=== PATIENT | male | born 1955 | race Caucasian/White ===

== ENCOUNTER 2019-11-29 16:41 | Emergency (ER) | payer OTHER ==
[~2019-11-29] VITALS: Ht 175.3 cm; Wt 126.1 kg
--- NOTE | 2019-11-29 16:58 | NUR ---
HARJIT FROM HOME TO ER BED 6. AAOX4. NOT IN RESP DISTRESS. CAME IN ON WHEELCHAIR. COMPLAINT OF R FOOT PAIN S/P GLF. PER PT, HIS LEG GAVE OUT ON HIM AND FELL TO HIS KNEE. DENIES HT NOR KO. NOT SWELLING ON THE RIGHT FOOR WWIIHT LIMITED ROM. PT ALSO NOTED W/ R KNEE ABRASSION. WAS AT BEDSIDE FOR EVAL.
[2019-11-29] MEDS ORDERED: ACETAMINOPHEN ES 500 MG TABLET ONE (17:57)
[2019-11-29] MEDS ORDERED: ACETAMINOPHEN 325 MG TABLET PO ONE (18:00)
--- NOTE | 2019-11-29 18:37 | NUR ---
EMT AT BEDSIDE FOR SPLINTING
--- NOTE | 2019-11-29 19:20 | NUR ---
Patient discharged to home in stable condition. Written and verbal after care instructions given. Patient verbalizes understanding of instruction. Pt ambulatory with an aide of cruthces which was dispensed to pt.
[2019-11-29 19:34] VITALS: BP 135/75
== END 2019-11-29 19:35 | disposition home or self-care (01) ==
LOC: ER 16:41
DX: S92.344A Nondisplaced fracture of fourth metatarsal bone, right foot, initial encounter for closed fracture (principal); I10 Essential (primary) hypertension; E11.9 Type 2 diabetes mellitus without complications; Z60.2 Problems related to living alone; W01.0XXA Fall on same level from slipping, tripping and stumbling without subsequent striking against object, initial encounter; Y93.89 Activity, other specified; Y92.89 Other specified places as the place of occurrence of the external cause; Y99.8 Other external cause status
CPT/HCPCS: 73630-TC